=== PATIENT | female | born 1965 | race Native Hawaiian/Other Pacific Islander ===

== ENCOUNTER 2020-11-19 19:15 | Emergency (ER) | payer MEDICAID, OTHER ==
[2020-11-19] MEDS ORDERED: Albuterol 0.083% 2.5 MG/3 ML Neb Soln NEB ONE (19:31)
[2020-11-19] MEDS ORDERED: Albuterol/Ipratropium 3.0-0.5 MG/3 ML Neb Soln NEB ONE (19:31)
[2020-11-19] MEDS ORDERED: methylPREDNISolone Sodium Succinate 125 MG/2 ML SDV IVPUSH ONE (19:33)
--- NOTE | 2020-11-19 19:37 | EDM.PDOC ---
ED HPI GENERAL MEDICAL PROBLEM - General Stated Complaint: CAN'T BREATH/ASTHMA Time Seen by Provider: 11/19/20 19:31 Source of Information: Reports: Patient, Family History Limitations: Reports: No Limitations - History of Present Illness INITIAL COMMENTS - FREE TEXT/NARRATIVE: Presents emergency room today with sudden onset of shortness of breath difficulty breathing, he states that yesterday she had a little bit of a scratchy dry throat and that she has been getting over a recent cold. Was at her daughter's house who has a dog and she thinks that the dog may have triggered respiratory symptoms although she states she has never had asthma before patient is a long-term significant smoker starting at age 16 and she does have Ventolin inhaler which she used approximately 10 to 15 minutes prior to arrival with no effect she states she has been using it several times throughout the day and it has not seemed to help. Patient also states that her daughter has a nebulizer and she attempted to use a nebulizer treatment but did not have a facemask so she feels like she was not able to breathe the solution in through the end of the tubing. Patient denies any other associated symptoms she does state that she was only able to smoke 3 or 4 some cigarettes today secondary to the shortness of breath and she normally smokes about three quarters or more of a pack of cigarettes per day PMH--COPD, tobacco use/abuse, IBS, diverticulosis, hormone replacement therapy Meds--albuterol inhaler, singulair, NKDA tob-->3/4 ppd (started age 16) COVID infection history -- August 2019, asymptomatic/tested positive COVID Immunization-- 13 September & 13 Oct 2020 Onset: Today, Sudden Severity: Moderate Improves with: Reports: None (albuterol inhaler/nebulizer at home has not helped per patient report) Worsens with: Reports: Movement Associated Symptoms: Reports: No Other Symptoms denies pain Pain Score (Numeric/FACES): 0 - Related Data Allergies Allergy/AdvReac Type Severity Reaction Status Date / Time No Known Allergies Allergy Verified 11/19/20 19:37 Home Meds: Home Meds Albuterol Sulfate [Albuterol Sulfate Hfa] 1 - 2 inh INH ASDIRECTED PRN 11/19/20 [History] Dicyclomine [Bentyl] 20 mg PO TID 11/19/20 [History] Docusate Sodium [Colace] 100 mg PO ASDIRECTED PRN 11/19/20 [History] Montelukast [Singulair] 10 mg PO BEDTIME 11/19/20 [History] estradioL [Estradiol] 0.5 mg PO DAILY 11/19/20 [History] ED ROS GENERAL - Review of Systems Review Of Systems: Comprehensive ROS is negative, except as noted in HPI. Constitutional: Reports: No Symptoms HEENT: Reports: Other (recent voice change with dry throat sensation; recent URI/cold reported by patient) Respiratory: Reports: Shortness of Breath, Wheezing, Cough Cardiovascular: Reports: No Symptoms Endocrine: Reports: No Symptoms GI/Abdominal: Reports: No Symptoms : Reports: No Symptoms Musculoskeletal: Reports: No Symptoms Skin: Reports: No Symptoms Neurological: Reports: No Symptoms Psychiatric: Reports: No Symptoms Hematologic/Lymphatic: Reports: No Symptoms Immunologic: Reports: No Symptoms ED EXAM, GENERAL - Physical Exam Exam: See Below Exam Limited By: No Limitations General Appearance: Alert, WD/WN, Moderate Distress (respiratory, conversation interrupted due to SOB) Eye Exam: Bilateral Eye: EOMI, Normal Inspection, PERRL Ears: Normal External Exam, Normal Canal, Hearing Grossly Normal, Normal TMs Nose: Normal Inspection Throat/Mouth: Normal Inspection, Normal Lips, Normal Teeth, Normal Gums, Normal Oropharynx. No: Normal Voice (horse/raspy voice) Head: Atraumatic, Normocephalic Neck: Normal Inspection, Supple, Non-Tender, Full Range of Motion. No: Lymphadenopathy (R), Lymphadenopathy (L) Respiratory/Chest: Decreased Breath Sounds, Wheezing, Other (decreased airmovement throughout--faint wheeze) Cardiovascular: Normal Peripheral Pulses, Regular Rate, Rhythm, No Edema, No Murmur Peripheral Pulses: 2+: Radial (L), Radial (R) GI/Abdominal: Normal Bowel Sounds, Soft, Non-Tender (Female) Exam: Deferred Rectal (Female) Exam: Deferred Back Exam: Normal Inspection Extremities: Normal Inspection, Normal Range of Motion, No Pedal Edema, Normal Capillary Refill Neurological: Alert, Oriented, Normal Cognition, No Motor/Sensory Deficits Psychiatric: Normal Affect, Normal Mood Skin Exam: Warm, Dry, Intact, Normal Color Course - Vital Signs Text/Narrative:: 2009--patient reports feeling improved after nebulizer treatments, continues to have horse voice but she states that this has been normal last several days with her dry throat (she states that increased hot flashes so she sleeps under a fan). Lungs--CTAB, easy/unlabored, no longer dyspenic with conversation, no longer noted to have tachypnea. will continue to monitor, plan for d/c if no further complaints in the next 1 hour 2104--patient recheck, feels improved. denies any SOB/difficulty breathing at this time, in fact states that she was just dozing off. d/w patient home care of COPD exacerbation to include smoking cessation, use of albuterol rescue inhaler and escalation to use of duo-nebulizer if needed. will provide prescription for duo-neb medication, she states she has nebulizer machine at home--instructed to take tubing from today for home use as needed. will also send home with prednisone burst x 5 days. recommend PCM follow up in the next 5-7 days. sooner if needed. verbalized understanding/agreement with plan of care Last Recorded V/S: Last Vital Signs Temp 97.9 F 11/19/20 19:40 Pulse 89 11/19/20 19:40 Resp 24 H 11/19/20 19:40 BP 139/78 11/19/20 19:40 Pulse Ox 97 11/19/20 19:40 - Orders/Labs/Meds Orders: Active Orders 24 hr Category Date Time Status RT Aerosol Therapy [RC] ASDIRECTED Care 11/19/20 19:32 Active Chest 1V Frontal [CR] Stat Exams 11/19/20 19:33 Taken Meds: Medications Discontinued Medications Generic Name Dose Route Start Last Admin Trade Name Mateo PRN Reason Stop Dose Admin Albuterol 5 mg 11/19/20 19:31 11/19/20 19:38 Albuterol 0.083% 2.5 Mg/3 Ml Neb Soln NEB 11/19/20 19:32 5 mg ONETIME ONE Administration Albuterol/Ipratropium 3 ml 11/19/20 19:31 11/19/20 19:39 Albuterol/Ipratropium 3.0-0.5 Mg/3 Ml Neb Soln NEB 11/19/20 19:32 3 ml ONETIME ONE Administration Methylprednisolone Sodium Succinate 125 mg 11/19/20 19:33 06/16/21 19:39 Methylprednisolone Sodium Succinate 125 Mg/2 Ml Sdv IVPUSH 11/19/20 19:34 125 mg ONETIME ONE Administration - Radiology Interpretation Free Text/Narrative:: 2014--chest 1V read at bedside, no acute process noted on preliminary reading; final radiology reading pending Departure - Departure Time of Disposition: 21:11 Disposition: Home, Self-Care 01 Condition: Good Clinical Impression: COPD exacerbation, Tobacco abuse - Discharge Information *PRESCRIPTION DRUG MONITORING PROGRAM REVIEWED*: Not Applicable *COPY OF PRESCRIPTION DRUG MONITORING REPORT IN PATIENT ÓSCAR: Not Applicable Instructions: Coping with Quitting Smoking, Steps to Quit Smoking, E asy-to-Read, Chronic Obstructive Pulmonary Disease, Bbbu-ey-Ultr Referrals: PCP,None [Primary Care Provider] - Additional Instructions: As discussed it is recommended that you follow-up with your family physician/primary care provider in the next 5 to 7 days sooner if return to symptoms or concerns develop You have been given a prescription for duo nebulizer solution as well as a prednisone burst he will take 40 mg of prednisone daily for 5 days starting tomorrow morning. His note this may cause sleep interruption difficulty sleeping while using prednisone as well as an increase in your hot flashes Further medication refills of your albuterol inhaler and your duo nebulizer solution should be obtained through your family doctor/primary care, is important that you do not allow these medications to lapse or run out as COPD exacerbations are predictable in nature Turn to the emergency room/call 911 immediately if your albuterol inhaler and duo nebulizer are not working should you have another event of shortness of breath difficulty breathing Sepsis Event Note (ED) - Focused Exam Vital Signs: Vital Signs Temp Pulse Resp BP Pulse Ox 11/19/20 19:40 97.9 F 89 24 H 139/78 97 11/19/20 19:28 97.9 F 89 24 H 139/78 97 - My Orders Last 24 Hours: My Active Orders 11/19/20 19:32 RT Aerosol Therapy [RC] ASDIRECTED 11/19/20 19:33 Chest 1V Frontal [CR] Stat - Assessment/Plan Last 24 Hours: My Active Orders 11/19/20 19:32 RT Aerosol Therapy [RC] ASDIRECTED 11/19/20 19:33 Chest 1V Frontal [CR] Stat
--- NOTE | 2020-11-20 09:03 | CR ---
CHEST: Portable 11/19/2020 at 8:14 PM CLINICAL HISTORY:COPD exacerbation COMPARISON:None FINDINGS: Heart size is upper limits of normal. Pulmonary vascularity is normal. No infiltrates are seen. Some mild generalized interstitial prominence which is likely chronic Impression: No acute cardiopulmonary process Borderline cardiomegaly.
== END 2020-11-19 21:25 | disposition home or self-care (01) ==
LOC: JP.ED 19:15
DX: J44.1 Chronic obstructive pulmonary disease with (acute) exacerbation (principal); F17.210 Nicotine dependence, cigarettes, uncomplicated; Z79.899 Other long term (current) drug therapy
CPT/HCPCS: 71045; 96374; 99285; J2930; J7620-GY